=== PATIENT | female | born 1955 | race Caucasian/White ===

== ENCOUNTER → 2019-09-10 | Outpatient (CLI) | payer BC ==
--- NOTE | 2019-09-10 11:49 | WOMENS IMAGING REPORT ---
EXAM DESCRIPTION: RETROPERITONEAL U/S COMPLETED DATE/TIME: 09/10/2019 7:37 am REASON FOR STUDY: N18.3 N18.3 CHRONIC KIDNEY DISEASE, STAGE 3 (MODERATE) COMPARISON: None. TECHNIQUE: Dynamic and static grayscale images acquired of the kidneys and bladder and recorded on P ACS. Additional selected color Doppler and spectral images recorded. LIMITATIONS: None. FINDINGS: RIGHT KIDNEY: The right kidney measures 10.1 cm in length. The echotexture of the parenc hyma is normal. The corticomedullary differentiation is preserved. There is no hydronephrosis, calc ification or mass. LEFT KIDNEY: The left kidney measures 9.9 cm in length. The echotexture of the parenchyma is normal . The corticomedullary differentiation is preserved. There is no hydronephrosis, calcification or m ass. BLADDER: No masses. OTHER FINDINGS: No other finding. IMPRESSION: No sonographic abnormality of the kidneys and urinary bladder. TECHNICAL DOCUMENTATION: JOB ID: [id number] [employer]- All Rights Reserved Reading location - IP/workstation name: [email or web address]
== END ==
LOC: WI 08:04
PROVIDERS: ATTEND Internal Medicine Nephrology
DX: N18.3 Chronic kidney disease, stage 3 (moderate) (principal)
CPT/HCPCS: 76770